=== PATIENT | male | born 1995 | race Caucasian/White ===

== ENCOUNTER 2017-05-31 15:21 | Emergency (ER) | payer SELFPAY ==
[2017-05-31] MEDS ORDERED: DIPH/PERTUSS(ACELL)/TETANUS VAC/PF 0.5 ML SYR (>=10YO) IM ONE (15:35)
[2017-05-31] MEDS ORDERED: BUPIVACAINE HCL 0.5 % INJ/PF 30 ML SDV INJ ONE (15:35)
--- NOTE | 2017-05-31 15:36 | ER Document Report ---
HPI - HPI Patient complains to provider of: fishhook to foot Onset: Just prior to arrival Onset/Duration: Sudden Quality of pain: Sharp Pain Level: 5 Context: Patient states he was swimming in the ocean and got a fishhook stuck in his left great toe. Patient is uncertain when his last tetanus immunization was. Patient [place] fishhook out of his toe unsuccessfully. Associated Symptoms: Other - Left great toe foreign body Exacerbated by: Movement Relieved by: Denies Similar symptoms previously: No Recently seen / treated by doctor: No - ROS ROS below otherwise negative: Yes Systems Reviewed and Negative: Yes All other systems reviewed and negative - CONSTITUTIONAL Constitutional: DENIES: Fever - NEURO Neurology: DENIES: Weakness - MUSCULOSKELETAL Musculoskeletal: REPORTS: Extremity pain - DERM Skin Color: Normal Skin Problems: Puncture Wound Past Medical History - General Information source: Patient - Social History Smoking Status: Never Smoker Frequency of alcohol use: None Drug Abuse: None Occupation: plumbing Family History: None - Medical History Medical History: Negative - Past Medical History Cardiac Medical History: Denies: Hx Coronary Artery Disease, Hx Heart Attack, Hx Hypertension Pulmonary Medical History: Denies: Hx Asthma, Hx Bronchitis, Hx COPD, Hx Pneumonia Neurological Medical History: Denies: Hx Cerebrovascular Accident, Hx Seizures Renal/ Medical History: Denies: Hx Peritoneal Dialysis Musculoskeltal Medical History: Denies Hx Arthritis Surgical Hx: Negative - Immunizations Hx Diphtheria, Pertussis, Tetanus Vaccination: No Vertical Provider Document - CONSTITUTIONAL Agree With Documented VS: Yes Exam Limitations: No Limitations General Appearance: WD/WN, No Apparent Distress - INFECTION CONTROL TRAVEL OUTSIDE OF THE [place] IN LAST 30 DAYS: No - HEENT HEENT: Atraumatic, Normocephalic - NECK Neck: Normal Inspection - RESPIRATORY Respiratory: No Respiratory Distress O2 Sat by Pulse Oximetry: 100 - CARDIOVASCULAR Pulses: Normal: Dorsalis pedis - MUSCULOSKELETAL/EXTREMETIES Musculoskeletal/Extremeties: MAEW, Tender - tender L gr toe with FB, No Edema - NEURO Level of Consciousness: Awake, Alert, Appropriate Motor/Sensory: No Motor Deficit - DERM Integumentary: Warm, Dry Course - Re-evaluation Re-evalutation: 05/31/17 16:43 After patient was anesthetized with bupivacaine 0.5% digital block, Dr. Carrillo to bedside to assist with fishhook removal. [place] was advanced, Hellen was trimmed off and then hook was removed. Patient tolerated procedure well. - Vital Signs Vital signs: Temp Pulse Resp BP Pulse Ox 97.6 F 86 20 143/67 H 100 05/31/17 15:27 05/31/17 15:27 05/31/17 15:27 05/31/17 15:27 05/31/17 15:27 Discharge - Discharge Clinical Impression: Elevated blood pressure reading, fish hook removal Toe injury Qualifiers: Encounter type: initial encounter Laterality: left Qualified Code(s): S99.922A - Unspecified injury of left foot, initial encounter Condition: Stable Disposition: HOME, SELF-CARE Instructions: Cephalexin ([facility]), Doxycycline ([facility]), Dressing Instructions for Open Wounds ([facility]), Oral Narcotic Medication ([facility]), Removal of Subcutaneous Foreign Object ([facility]) Additional Instructions: Return immediately for any new or worsening symptoms Followup with orthopedic doctor for any continued pain or problems Prescriptions: Cephalexin Monohydrate [Keflex 500 mg Capsule] 500 mg PO Q6H 5 Days capsule Doxycycline Hyclate 100 mg PO BID #14 capsule Hydrocodone/Acetaminophen [[place] 5-325 Tablet] 1 each PO Q4 PRN #10 tablet PRN Reason: Forms: Return to Work Referrals: [facility] [Provider Group] - Follow up as needed
[2017-05-31] MEDS ORDERED: CEPHALEXIN 500 MG CAPSULE PO ONE (15:40)
[2017-05-31] MEDS ORDERED: DOXYCYCLINE HYCLATE 100 MG TABLET PO ONE (15:40)
[2017-05-31 17:04] VITALS: BP 127/58
== END 2017-05-31 17:04 | disposition home or self-care (01) ==
LOC: ER 15:21
PROC: 0JCR0ZZ Extirpation of Matter from Left Foot Subcutaneous Tissue and Fascia, Open Approach (ICD-10-PCS; principal; 2017-05-31)
DX: S91.142A Puncture wound with foreign body of left great toe without damage to nail, initial encounter (principal); R03.0 Elevated blood-pressure reading, without diagnosis of hypertension; W22.8XXA Striking against or struck by other objects, initial encounter; Y93.11 Activity, swimming; Y92.832 Beach as the place of occurrence of the external cause; Z23 Encounter for immunization
CPT/HCPCS: 90471; 90715; 99283

== ENCOUNTER 2018-03-09 09:24 | Emergency (ER) | payer SELFPAY ==
[2018-03-09] MEDS ORDERED: RINGERS SOLUTION,LACTATED 1,000 ML IV ONE (09:49)
[2018-03-09] MEDS ORDERED: ONDANSETRON HCL INJ/PF 4 MG/2 ML SDV IV ONE (09:49)
--- NOTE | 2018-03-09 09:49 | ER Document Report ---
ED Medical Screen (RME) - General TRAVEL OUTSIDE OF THE [place] IN LAST 30 DAYS: No <CONONR COMBS - Last Filed: 03/09/18 10:43> <GRACE ROMAN - Last Filed: 03/09/18 15:37> - General Chief Complaint: Abdominal Pain Stated Complaint: ABDOMINAL PAIN Time Seen by Provider: 03/09/18 09:45 Notes: Patient is a 22-year-old male who presents to the emergency department today with complaints of abdominal pain for the last 4 days. Patient states initially his abdominal pain felt like a "sore muscle". 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 Patient denies fevers. I have greeted and performed a rapid initial assessment of this patient. A comprehensive ED assessment and evaluation of the patient, analysis of test results, and completion of the medical decision making process will be conducted by additional ED providers. Review of systems: Positive for abdominal pain and vomiting. Negative for fevers. PHYSICAL EXAM GENERAL: Alert, interacts well. No acute distress. HEAD: Normocephalic, atraumatic. EYES: Pupils equal, round, and reactive to light. Extraocular movements intact. ENT: Oral mucosa moist, tongue midline. NECK: Full range of motion. Supple. Trachea midline. LUNGS: Clear to auscultation bilaterally, no wheezes, rales, or rhonchi. No respiratory distress. HEART: Regular rate and rhythm. No murmurs, gallops, or rubs. ABDOMEN: RLQ tenderness with palpation. Bowel sounds present in all 4 quadrants. No guarding, rigidity, or rebound. EXTREMITIES: Moves all 4 extremities spontaneously. No edema, radial and dorsalis pedis pulses 2/4 bilaterally. No cyanosis. NEUROLOGICAL: Alert and oriented x3. Normal speech. PSYCH: Normal affect, normal mood. SKIN: Warm, dry, normal turgor. No rashes or lesions noted. (CONNOR COMBS) - Related Data Allergies/Adverse Reactions: erythromycin base [Erythromycin Base] Allergy (Severe, Verified 03/09/18 09:27) Anaphylaxis midazolam HCl [From Versed] Allergy (Severe, Verified 03/09/18 09:27) Anaphylaxis Past Medical History - Social History Chew tobacco use (# tins/day): No Frequency of alcohol use: None Drug Abuse: None - Past Medical History Cardiac Medical History: Denies: Hx Coronary Artery Disease, Hx Heart Attack, Hx Hypertension Pulmonary Medical History: Denies: Hx Asthma, Hx Bronchitis, Hx COPD, Hx Pneumonia Neurological Medical History: Denies: Hx Cerebrovascular Accident, Hx Seizures Renal/ Medical History: Denies: Hx Peritoneal Dialysis GI Medical History: Reports: Hx Gastroesophageal Reflux Disease Musculoskeltal Medical History: Denies Hx Arthritis - Immunizations Hx Diphtheria, Pertussis, Tetanus Vaccination: No <CONNOR COMBS - Last Filed: 03/09/18 10:43> - Vital signs Vitals: Temp Pulse Resp BP Pulse Ox 98.0 F 55 L 14 127/70 H 100 03/09/18 09:28 03/09/18 09:28 03/09/18 09:28 03/09/18 09:28 03/09/18 09:28 Course - Laboratory Result Diagrams: 03/09/18 10:18 03/09/18 10:18 <CONNOR COMBS - Last Filed: 03/09/18 10:43> - Laboratory Result Diagrams: 03/09/18 10:18 03/09/18 10:18 <GRACE ROMAN - Last Filed: 03/09/18 15:37> - Vital Signs Vital signs: Temp Pulse Resp BP Pulse Ox 98.3 F 79 18 122/80 99 03/09/18 14:25 03/09/18 14:25 03/09/18 14:25 03/09/18 14:25 03/09/18 14:25 - Laboratory Laboratory results interpreted by me: 03/09/18 03/09/18 09:50 10:18 Calcium 10.3 H Total Bilirubin 1.8 H Total Protein 8.4 H Albumin 5.1 H Urine Urobilinogen 4.0 H Doctor's Discharge <CONNOR COMBS - Last Filed: 03/09/18 10:43> <GRACE ROMAN - Last Filed: 03/09/18 15:37> - Discharge Clinical Impression: Abdominal pain in male Condition: Stable Disposition: HOME, SELF-CARE Instructions: Abdominal Pain ([facility]), Antinausea Medication ([facility]), Antispasmodics ([facility]) Additional Instructions: REST, DRINK PLENTY OF FLUIDS. CLEAR LIQUID DIET UNTIL APPETITE RETURNS, THEN GRADUALLY ADVANCE DIET. YOU MAY TAKE ZOFRAN IF NEEDED FOR NAUSEA CONTROL. YOU MAY TAKE BENTYL IF NEEDED FOR PAIN. ALSO, TAKE PRILOSEC (OMEPRAZOLE), 20 mg DAILY TO REDUCE ACID IN STOMACH. FOLLOW UP WITH YOUR PRIMARY CARE PROVIDER OR RETURN TO E.R. IF NOT IMPROVED IN 48 HOURS, OR SOONER IF WORSE, ANY TIME. Prescriptions: Dicyclomine HCl [Bentyl 10 mg Capsule] 10 mg PO Q4HP PRN #14 capsule PRN Reason: Abdominal Cramping Ondansetron [Zofran Odt 4 mg Tablet] 1 - 2 tab PO Q4H #10 tab.rosa Torres Documentation - Scribe Written by Melissa:: Melissa Liu, 03/09/2018 1048 acting as scribe for :: Vanesa <CONNOR COMBS - Last Filed: 03/09/18 10:43>
[2018-03-09 10:15] LABS: APPEARANCE,URINE CLEAR; BILIRUBIN,URINE NEGATIVE (NEGATIVE); COLOR,URINE YELLOW; GLUCOSE, URINE NEGATIVE (NEGATIVE); KETONES,URINE NEGATIVE (NEGATIVE); LEUKOCYTE ESTERASE,URINE NEGATIVE (NEGATIVE); NITRITE,URINE NEGATIVE (NEGATIVE); PROTEIN,URINE NEGATIVE (NEGATIVE); URINE SPECIFIC GRAVITY 1.023
[2018-03-09] MEDS ORDERED: FENTANYL CITRATE INJ/PF 100 MCG/2 ML AMPUL IV ONE ×2 (10:19→11:52)
[2018-03-09] MEDS ORDERED: ONDANSETRON 4 MG TAB.RAPDIS PO ONE (10:19)
[2018-03-09 10:32] LABS: ABSOLUTE EOSINOPHILS # (AUTO) 0.1 10^3/uL (0.0-0.6); ABSOLUTE LYMPHOCYTES (AUTO) 2.1 10^3/uL (0.5-4.7); ABSOLUTE MONOCYTES (AUTO) 0.4 10^3/uL (0.1-1.4); ABSOLUTE NEUT (AUTO) 4.7 10^3/uL (1.7-8.2); BASOPHILS % (AUTO) 0.3 % (0-2); HEMATOCRIT 48.5 % (37.9-51.0); HEMOGLOBIN 16.6 g/dL (13.5-17.0); LYMPHOCYTES % (AUTO) 28.8 % (13-45); MEAN CORPUSCULAR HGB CONC 34.2 g/dL (32.0-36.0); MEAN CORPUSCULAR VOLUME 88 fl (80-97); MONOCYTES % (AUTO) 5.6 % (3-13); PLATELET COUNT 217 10^3/uL (150-450); RED BLOOD COUNT 5.53 10^6/uL (4.35-5.55); RED CELL DISTRIBUTION WIDTH 13.2 % (11.5-14.0); SEGMENTED NEUTROPHILS % (AUTO) 64.3 % (42-78); TOTAL CELLS COUNTED % (AUTO) 100 %; WHITE BLOOD COUNT 7.4 10^3/uL (4.0-10.5)
[2018-03-09 11:01] LABS: ALANINE AMINOTRANSFERASE 21 U/L (21-72); ALBUMIN 5.1 g/dL (3.5-5.0); ALKALINE PHOSPHATASE 73 U/L (38-126); ANION GAP 15 (5-19); ASPARTATE AMINO TRANSFERASE 25 U/L (17-59); BILIRUBIN,DIRECT 0.4 mg/dL (0.0-0.4); BILIRUBIN,TOTAL 1.8 mg/dL (0.2-1.3); BLOOD UREA NITROGEN 14 mg/dL (7-20); CALCIUM 10.3 mg/dL (8.4-10.2); CARBON DIOXIDE 29 mmol/L (22-30); CHLORIDE 100 mmol/L (98-107); GLUCOSE 95 mg/dL (75-110); TOTAL PROTEIN 8.4 g/dL (6.3-8.2)
[2018-03-09] MEDS ORDERED: RINGERS SOLUTION,LACTATED 1,000 ML IV PRN (11:31)
--- NOTE | 2018-03-09 12:05 | ER Document Report ---
ED GI/ - General Chief Complaint: Abdominal Pain Stated Complaint: ABDOMINAL PAIN Time Seen by Provider: 03/09/18 09:45 Mode of Arrival: Ambulatory Information source: Patient TRAVEL OUTSIDE OF THE [place] IN LAST 30 DAYS: No - HPI Patient complains to provider of: Abdominal pain Onset: Other - 3-4 DAYS Timing/Duration: Constant, Waxing and waning Quality of pain: Sharp, Stabbing Severity at maximum: Moderate Severity in ED: Moderate Context: denies: Bad food, Lifting, Out of the country travel, Recent trauma Location: Epigastric, Other - HOWARD-UMBILICAL Exacerbated by: Standing, Walking Relieved by: Other - POSITION Similar symptoms previously: No Recently seen / treated by doctor: No - Related Data Allergies/Adverse Reactions: erythromycin base [Erythromycin Base] Allergy (Severe, Verified 03/09/18 09:27) Anaphylaxis midazolam HCl [From Versed] Allergy (Severe, Verified 03/09/18 09:27) Anaphylaxis Past Medical History - General Information source: Patient - Social History Smoking Status: Never Smoker Chew tobacco use (# tins/day): No Frequency of alcohol use: None Drug Abuse: None Lives with: Family Family History: None Patient has suicidal ideation: No Patient has homicidal ideation: No - Past Medical History Cardiac Medical History: Reports: None Denies: Hx Coronary Artery Disease, Hx Heart Attack, Hx Hypertension Pulmonary Medical History: Reports: None Denies: Hx Asthma, Hx Bronchitis, Hx COPD, Hx Pneumonia EENT Medical History: Reports: None Neurological Medical History: Reports: None. Denies: Hx Cerebrovascular Accident, Hx Seizures Endocrine Medical History: Reports: None Renal/ Medical History: Reports: None. Denies: Hx Peritoneal Dialysis Malignancy Medical History: Reports None GI Medical History: Reports: Hx Gastroesophageal Reflux Disease Musculoskeltal Medical History: Reports None, Denies Hx Arthritis Psychiatric Medical History: Reports: None Surgical Hx: Negative - Immunizations Hx Diphtheria, Pertussis, Tetanus Vaccination: No Review of Systems - Review of Systems Constitutional: No symptoms reported. denies: Chills, Fever, Weight loss EENT: No symptoms reported Cardiovascular: No symptoms reported Respiratory: No symptoms reported Gastrointestinal: See HPI Genitourinary: No symptoms reported Male Genitourinary: No symptoms reported Musculoskeletal: No symptoms reported Skin: No symptoms reported Neurological/Psychological: No symptoms reported Physical Exam - Vital signs Vitals: Temp Pulse Resp BP Pulse Ox 98.0 F 55 L 14 127/70 H 100 03/09/18 09:28 03/09/18 09:28 03/09/18 09:28 03/09/18 09:28 03/09/18 09:28 Interpretation: Bradycardic. No: Hypotensive, Tachypneic, Febrile - HEENT Head: Normocephalic Eyes: Normal Conjunctiva: Normal Ears: Normal Nasal: Normal Mouth/Lips: Normal Mucous membranes: Normal Pharynx: Normal Neck: Normal - Respiratory Respiratory status: No respiratory distress Breath sounds: Normal - Cardiovascular Rhythm: Regular Heart sounds: Normal auscultation Murmur: No - Abdominal Inspection: Normal Distension: No distension Bowel sounds: Hypoactive Tenderness: Tender - MILD, EPIGASTRIC - Back Back: Normal - Extremities General upper extremity: Normal inspection General lower extremity: Normal inspection - Neurological Neuro grossly intact: Yes Cognition: Normal Orientation: AAOx4 - Psychological Associated symptoms: Normal affect, Normal mood - Skin Skin Temperature: Warm Skin Moisture: Dry Skin Color: Normal Skin Turgor: Elastic Course - Re-evaluation Re-evalutation: 03/09/18 14:12 Patient still complains of pain, although he says it has diminished slightly. He appears to be in no distress. Results of laboratory testing and CT imaging discussed. - Vital Signs Vital signs: Temp Pulse Resp BP Pulse Ox 98.3 F 79 18 122/80 99 03/09/18 14:25 03/09/18 14:25 03/09/18 14:25 03/09/18 14:25 03/09/18 14:25 - Laboratory Result Diagrams: 03/09/18 10:18 03/09/18 10:18 Laboratory results interpreted by me: 03/09/18 03/09/18 09:50 10:18 Calcium 10.3 H Total Bilirubin 1.8 H Total Protein 8.4 H Albumin 5.1 H Urine Urobilinogen 4.0 H Discharge - Discharge Clinical Impression: Abdominal pain in male Condition: Stable Disposition: HOME, SELF-CARE Instructions: Abdominal Pain ([facility]), Antinausea Medication ([facility]), Antispasmodics ([facility]) Additional Instructions: REST, DRINK PLENTY OF FLUIDS. CLEAR LIQUID DIET UNTIL APPETITE RETURNS, THEN GRADUALLY ADVANCE DIET. YOU MAY TAKE ZOFRAN IF NEEDED FOR NAUSEA CONTROL. YOU MAY TAKE BENTYL IF NEEDED FOR PAIN. ALSO, TAKE PRILOSEC (OMEPRAZOLE), 20 mg DAILY TO REDUCE ACID IN STOMACH. FOLLOW UP WITH YOUR PRIMARY CARE PROVIDER OR RETURN TO E.R. IF NOT IMPROVED IN 48 HOURS, OR SOONER IF WORSE, ANY TIME. Prescriptions: Dicyclomine HCl [Bentyl 10 mg Capsule] 10 mg PO Q4HP PRN #14 capsule PRN Reason: Abdominal Cramping Ondansetron [Zofran Odt 4 mg Tablet] 1 - 2 tab PO Q4H #10 tab.[email or web address]
--- NOTE | 2018-03-09 13:10 | RADIOLOGY REPORT (SQ) ---
EXAM DESCRIPTION: CT ABD/PELVIS WITH IV ORAL COMPLETED DATE/TIME: 03/09/2018 12:56 pm REASON FOR STUDY: RLQ tenderness to palpation COMPARISON: None. TECHNIQUE: CT scan of the abdomen and pelvis performed with intravenous and oral contrast using tiffany syeda scanning technique with dynamic intravenous contrast injection. Images reviewed with lung, soft t issue, and bone windows. Reconstructed coronal and sagittal MPR images reviewed. Delayed images for e valuation of the urinary system also acquired. All images stored on PACS. All CT scanners at this facility use dose modulation, iterative reconstruction, and/or weight based d osing when appropriate to reduce radiation dose to as low as reasonably achievable (ALARA). [facility]: Dose Right [facility]: CareDose [facility]: Dose Right [facility]: Teradose 4D [facility]: Qstream CONTRAST TYPE AND DOSE: contrast/concentration: Isovue 370.00 mg/ml; Total Contrast Delivered: 91.0 ml; Total Saline Delivered: 62.0 ml RENAL FUNCTION: GFR > 60. RADIATION DOSE: CT Rad equipment meets quality standard of care and radiation dose reduction techniq ues were employed. CTDIvol: 5.8 - 7.8 mGy. DLP: 856 mGy-cm.. LIMITATIONS: None. FINDINGS: LOWER CHEST: No significant findings. No nodules or infiltrates. LIVER: Normal size. No masses. No dilated ducts. SPLEEN: Normal size. No focal lesions. PANCREAS: No masses. No significant calcifications. No adjacent inflammation or peripancreatic fluid collections. Pancreatic duct not dilated. GALLBLADDER: No identified stones by CT criteria. No inflammatory changes to suggest cholecystitis. ADRENAL GLANDS: No significant masses or asymmetry. RIGHT KIDNEY AND URETER: No solid masses. No significant calcification. No hydronephrosis or hydroure ter. LEFT KIDNEY AND URETER: No solid masses. No significant calcification. No hydronephrosis or hydrouret er. AORTA AND VESSELS: No aneurysm. No dissection. Renal arteries, SMA, celiac without stenosis. RETROPERITONEUM: No retroperitoneal adenopathy, hemorrhage or masses. BOWEL AND PERITONEAL CAVITY: No obstruction. No visualized masses. No free fluid. No inflammatory ch anges or thickening of bowel wall. APPENDIX: Normal. PELVIS: No significant masses. Normal bladder. Trace free fluid. ABDOMINAL WALL: No masses. No hernias. BONES: No significant or acute findings. OTHER: No other significant finding. IMPRESSION: NO SIGNIFICANT OR ACUTE FINDINGS IN THE ABDOMEN OR PELVIS. TECHNICAL DOCUMENTATION: JOB ID: [id number] Quality ID # [id number]: Final reports with documentation of one or more dose reduction techniques (e.g., Au tomated exposure control, adjustment of the mA and/or kV according to patient size, use of iterative reconstruction technique) 2010 [employer]- All Rights Reserved Reading location - IP/workstation name: [email or web address]
[2018-03-09 14:25] VITALS: BP 122/80
== END 2018-03-09 15:14 | disposition home or self-care (01) ==
LOC: ER 09:24
DX: R10.33 Periumbilical pain (principal); R10.816 Epigastric abdominal tenderness; Z87.19 Personal history of other diseases of the digestive system; Z88.1 Allergy status to other antibiotic agents; Z88.4 Allergy status to anesthetic agent
CPT/HCPCS: 96376; 99284; 96361; 96374; 36415; 83690; 85025; 80053; 81001; 74177; S0119; J3010; J7120